=== PATIENT | male | born 1950 | race Caucasian/White ===

== ENCOUNTER 2019-02-19 19:41 | Emergency (ER) | payer MEDICARE, OTHER ==
[~2019-02-19] VITALS: Ht 170.2 cm; Wt 78.3 kg
[~2019-02-19 19:41] MED LIST: ASPI-535 ORAL; ATOR20TA65 ORAL; CLON1PAT2 TD; DONE5TAB46 ORAL; ERGO500013 ORAL; FURO20TA3 ORAL; GABA300C16 ORAL; GLIP5TAB13 ORAL; HYDR-3672 ORAL; LINA145C ORAL; LOSA50TA14 ORAL; PANT40TA3 PO; SITA1TAB5 ORAL
[2019-02-19 20:04] VITALS: Ht 170.2 cm; Wt 78.3 kg
[2019-02-19] MEDS ORDERED: SOD CHLORIDE 0.9% 500 ML IV STA (21:02)
[2019-02-19] MEDS ORDERED: HYDROmorphONE 1 MG/ML SYG IV STA (21:02)
[2019-02-19] MEDS ORDERED: ONDANSETRON 4 MG INJ IV STA (21:02)
[2019-02-19] MEDS ORDERED: FAMOTIDINE 20 MG INJ IV STA (21:02)
[2019-02-20 00:45] VITALS: BP 168/93; PULSE 93; RESP 18
== END 2019-02-20 00:45 | disposition home or self-care (01) ==
LOC: E/R 19:41
DX: K59.00 Constipation, unspecified (principal); I10 Essential (primary) hypertension; E11.9 Type 2 diabetes mellitus without complications; Z79.82 Long term (current) use of aspirin; Z79.84 Long term (current) use of oral hypoglycemic drugs; Z85.528 Personal history of other malignant neoplasm of kidney; Z87.891 Personal history of nicotine dependence
CPT/HCPCS: 36415; 74176; 80053; 81001; 83690; 84484; 85025; 96374; 96375; 99285; J1170; J2405; J7040